=== PATIENT | male | born 1960 | race Caucasian/White ===

== ENCOUNTER → 2025-01-16 16:24 | Outpatient (REF) | payer BC, SELFPAY | LOC: RAD 16:24 | PROVIDERS: ATTENDING PHYSICIAN Physician Assistant; FAMILY PHYSICIAN Family Medicine | DX: R10.9 Unspecified abdominal pain (principal); R31.29 Other microscopic hematuria | CPT/HCPCS: 74176 ==

== ENCOUNTER → 2025-06-19 09:18 | Outpatient (REF) | payer OTHER, SELFPAY | LOC: RAD 09:18 | PROVIDERS: ATTENDING PHYSICIAN Family Medicine; FAMILY PHYSICIAN Family Medicine | DX: R42 Dizziness and giddiness (principal); M54.2 Cervicalgia; M62.838 Other muscle spasm | CPT/HCPCS: 72050 ==

== ENCOUNTER 2025-06-19 12:36 | Emergency (ER) | payer OTHER, SELFPAY ==
[2025-06-19 12:39] VITALS: BP 158/107
--- NOTE | 2025-06-19 13:27 | ED.GENMED ---
History of Present Illness
General
Chief Complaint: Headache
Source: patient
Exam Limitations: none
Time Seen by Provider: 06/19/25 13:05
Nursing documentation reviewed up to this point in time: agreed with
History of Present Illness
History of Present Illness:
Patient presents to ED secondary to 3-month history of headache, posterior neck pain, dizziness, and weakness. Denies fever or chills. Denies difficulty speech or swallowing. Denies loss of sensation. Denies back pain. Patient states that his
symptoms started after waking up 1 morning with his head jammed between the pillow and the bedpost, with severe neck pain, which has improved but is ongoing. Denies nausea vomiting. Denies loss of appetite. Patient was evaluated by his primary
care physician who referred patient to ED for an evaluation for possible dissection.
Past History
Past History
ED Past Medical History: None and Other (back pain)
ED Past Surgical History: None
Social History
Personal:
Living: with family
Employment: Employed (truck driver, printing equipment mechanic)
Review of Systems
Review of Systems
Allergies reviewed?: Yes
All Other Systems: ROS reviewed and negative except as documented in HPI and ROS
Constitutional: Reports no symptoms
Respiratory: Reports no symptoms
Cardiac: Reports no symptoms
ABD/GI: Reports no symptoms; Denies vomiting
Musculoskeletal: Reports neck pain
Skin: Reports no symptoms
Neurological: Reports dizzy, headache and weakness; Denies numbness
Phy Exam
Physical Exam
Physical Exam:
Physical Exam
General: mild distress, not acutely ill. afebrile
Head: nc/at. eomi. pupils round and reactive.
Neck: supple. normal range of motion. no midline tenderness.
Heart: s1/s2 regular rate and rhythm
Lungs: no acute respiratory distress. clear bilaterally
Abdomen: normal bowel sounds. not tender.
Neuro: alert and oriented x 3. no focal neurological deficits. normal speech
Skin: no rash
Psychiatric: well kept. interactive and cooperative
Extremities: no edema. no calf tenderness.
Course
Orders/Labs/Results
Orders:
Orders
06/19/25 13:12
Electrocardiogram (*1) Urgent
Reason for Study: Vertigo / Dizzy
CT Head & Neck Angio W/wo IV Urgent
Comment:
Reason For Exam: headache/neck pain/weakness
EKG- Treatment ONCE
06/19/25 13:13
Orthostatic VS- Treatment ONCE
06/19/25 13:32
Complete Blood Count/With Diff Urgent
Comprehensive Metabolic Panel Urgent
Magnesium Urgent
06/19/25 14:17
Troponin I Urgent
Abnormal Lab Results
06/19/25
13:32
MCH 31.7 H pg
(27.0-31.0)
MPV 10.8 H fL
(7.4-10.4)
Absolute Neuts (auto) 7.8 H 10^3/uL
(1.4-6.5)
Absolute Lymphs (auto) 0.4 L 10^3/uL
(1.2-3.4)
Neutrophils % 92.8 H %
(42.2-75.2)
Lymphocytes % 5.2 L %
(20.5-51.1)
Monocytes % 1.3 L %
(1.7-9.3)
Glucose 233 H mg/dl
(70-99)
06/19/25 13:32
06/19/25 13:32
Vital Signs
Initial and Last Documented VS:
Initial Vital Signs
Temp Pulse Resp BP Pulse Ox
98.5 F 115 18 158/107 95
06/19/25 12:39 06/19/25 12:39 06/19/25 12:39 06/19/25 12:39 06/19/25 12:39
Last Documented Vital Signs
Temp Pulse Resp BP Pulse Ox
97.5 F 83 16 137/93 95
06/19/25 16:54 06/19/25 16:54 06/19/25 16:54 06/19/25 16:54 06/19/25 16:54
MDM/Problems Addressed
MDM/Problems Addressed:
Pt with an unremarkable workup in ED, including CTA head/neck. Otherwise, patient remains afebrile, hemodynamically stable, without acute neurological deficit. Pt is able to ambulate independently with steady gait, at time of discharge. Pt will be
discharged home in stable condition, to the care of his spouse, with recommendation to f.u with pmd for re-evaluation, including potential MRI as outpatient, along with physical therapy evaluation for potential vestibular therapy evaluation.
Pt's referred PMD notified of findings via [employer]text and need for further workup as outpatient.
*Pulse Oximetry
SaO2: 95
Oxygen Mode of Delivery: Room air
Patient hypoxic: no
*EKG
Interpreted by ED Provider?: Yes
EKG Intrepretation Date: 06/19/25
Heart Rate: 96
Rate: normal
Rhythm: sinus
[place]: left axis deviation
*Critical Care Note
Total Time (30-74mins, 75-104mins- exclusive of procedures): Not Applicable
ED Attending Note
-
Portions of this chart may have been created with voice recognition software.� Occasional wrong word or��sound alike� substitutions may have occurred due to the inherent limitations of voice recognition software.
Discharge Plan
Departure
Patient Disposition: Home (Routine Discharge)
Date of Disposition: 06/19/25
Time of Disposition: 16:29
Patient with high blood pressure during this ER visit?: Yes
Condition: Fair
Discharge Problem:
Dizziness
Instructions: Dizziness in adults - ED (DC)
Prescriptions:
No Action
acetaminophen [Tylenol Extra Strength] 500 MG tablet
1,000 mg PO Q6HPRN PRN (Reason: pain)
bismuth subsalicylate [[place] Bismuth] 1 TABLET tablet,chewable
1 tab PO PRN PRN (Reason: Indigestion)
melatonin 10 MG tablet
10 mg PO HS
cyclobenzaprine 10 mg Tablet
10 mg PO TID PRN (Reason: back pain)
omeprazole 40 mg Capsule,Delayed Release(Dr/Ec)
40 mg PO DAILY PRN (Reason: acid reflux)
methylprednisolone [Medrol (Rony)] 4 mg Tablets,Dose Pack
0 mg PO PER PKG DIR
Referrals:
Mata Kincaid MD [Family Provider, [facility]]
Activity Restrictions/Additional Instructions:
As discussed, please follow-up with your primary care physician for continual evaluation and treatment, including potentially obtaining MRI brain/cervical spine as outpatient, if your symptoms persist. In addition, please consider outpatient
physical therapy consultation as well, for vestibular therapy.
Interventions
Interventions:
*Risk Screen - Suicide Last Done: 06/19/25 12:39
*ED- Fall Risk Assessment Last Done: 06/19/25 13:35
*ED COVID-19 Vaccine History Last Done: 06/19/25 13:35
*Nursing Disposition Last Done: 06/19/25 16:56
ED- Neurological Assessment Last Done: 06/19/25 13:08
Discharge Date and Time
Discharge Date/Time: 06/19/25 16:57
Print Language: SWEDISH
[2025-06-19 13:30] VITALS: BP 126/81
[2025-06-19 13:34] VITALS: BP 126/81; BP 138/84; BP 145/86; PULSE 100; PULSE 109; PULSE 93
[2025-06-19 14:02] LABS: Hematocrit 45.8 % (39.0-52.0); Hemoglobin 15.7 g/dL (13.0-18.0); Mean Corp Hgb Conc. 34.3 g/dL (33.0-37.0); Mean Corpuscular Volume 92.3 fL (80.0-94.0); Nucleated Red Blood Cells % 0 % (-); Platelet Count 256 10^3/uL (130-400); Red Cell Dist. Width 12.2 % (11.5-14.5)
[2025-06-19 14:13] LABS: ALT (SGPT) 28 U/L (0-50); AST (SGOT) 25 U/L (17-59); Albumin 4.6 g/dl (3.5-5.0); Alkaline Phosphatase 82 U/L (38-126); Blood Urea Nitrogen 20 mg/dl (9-20); Calcium 9.8 mg/dl (8.4-10.2); Carbon Dioxide 24 mmol/L (22-30); Chloride 105 mmol/L (98-107); Glucose 233 mg/dl (70-99); Magnesium 1.9 mg/dl (1.6-2.3); Potassium 4.9 mmol/L (3.5-5.1); Sodium 136 mmol/L (135-145); Total Protein 7.3 g/dl (6.3-8.2); eGFR > 60.00
[2025-06-19 14:51] LABS: Troponin I < 0.012 ng/ml
[2025-06-19 16:54] VITALS: BP 137/93
== END 2025-06-19 16:57 | disposition home or self-care (01) ==
LOC: EMR 12:36
PROVIDERS: EMERGENCY PHYSICIAN Emergency Medicine; FAMILY PHYSICIAN Family Medicine
DX: R42 Dizziness and giddiness (principal); R51.9 Headache, unspecified; M54.2 Cervicalgia; R53.1 Weakness
CPT/HCPCS: 99284; 70496; 70498; 80053; 83735; 84484; 85025; 93005; Q9967

== ENCOUNTER → 2025-07-14 07:45 | Outpatient (REF) | payer OTHER, SELFPAY | LOC: PAVMRI 07:45 | PROVIDERS: ATTENDING PHYSICIAN Family Medicine; FAMILY PHYSICIAN Family Medicine | DX: R42 Dizziness and giddiness (principal); H57.03 Miosis; M54.2 Cervicalgia; M62.838 Other muscle spasm | CPT/HCPCS: 70551 ==

== ENCOUNTER → 2025-07-29 11:36 | Outpatient (REF) | payer OTHER, SELFPAY | LOC: DHSLP 11:36 | PROVIDERS: ATTENDING PHYSICIAN Family Medicine; FAMILY PHYSICIAN Family Medicine | DX: G47.30 Sleep apnea, unspecified (principal); R06.83 Snoring | CPT/HCPCS: 95800 ==